=== PATIENT | male | born 1985 | race Caucasian/White ===

== ENCOUNTER 2024-07-21 17:05 | Emergency (ER) | payer BC, OTHER, SELFPAY ==
[2024-07-21 17:09] VITALS: BP 158/93; PULSE 93; TEMP 37; O2SAT 99; BMI 18.1
--- NOTE | 2024-07-21 18:06 | ED_ITS ---
HPI HPI - General Adult General Chief complaint: Abdominal Pain Stated complaint: ABDOMINAL PAIN Time Seen by Provider: 07/21/24 17:12 Source: patient Mode of arrival: walk-in Limitations: no limitations History of Present Illness HPI narrative: Patient states she has been experiencing abdominal pain since February of last year. Pain is mostly on the left side. It is worse after meals and he has frequent bowel movements usually shortly after he eats anything. He has had some weight loss. He does not report bloody stool or persistent vomiting. He underwent EGD and colonoscopy at [facility] a few months ago. I have reviewed those reports and no significant findings were reported. He was placed on Protonix and then switched to omeprazole. 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 Related Data Home Medications ?Medication ?Instructions ?Recorded ?Confirmed omeprazole 40 mg capsule,delayed 40 mg PO BID 07/21/24 07/21/24 release Previous Rx's ?Medication ?Instructions ?Recorded dicyclomine 20 mg tablet 20 mg PO TID PRN abdominal pain 07/21/24 #30 tabs Allergies Allergy/AdvReac Type Severity Reaction Status Date / Time No Known Drug Allergies Allergy Verified 07/21/24 17:14 Opioid HPI Opioid Management Most Recent Opioid Data: No Data to Display Review of Systems ROS Status of ROS 10 or more systems reviewed and unremark able except as noted in history and below PFSH PFSH Social History Little interest or pleasure in doing things: not at all Feeling down, depressed, or hopeless: not at all Exam Narrative Exam Narrative: Thin in appearance, afebrile and nondistressed. HEENT exam is normal to inspection. Neck is supple. Lung sounds are clear to auscultation bilaterally with good air entry. Heart has regular rate and rhythm. S1 and S2 normal abdomen soft with mild tenderness in the left flank but without guarding or peritoneal signs. Bowel sounds are slightly hyperactive and there is no organomegaly or distention. Lower extremities are warm and dry. Constitutional Vital Signs, click to edit/add: Last Vital Signs Temp 98.6 F 07/21/24 17:09 Pulse 93 H 07/21/24 17:09 Resp 18 07/21/24 17:09 BP 158/93 H 07/21/24 17:09 Pulse Ox 99 07/21/24 17:09 O2 Del Method Room Air 07/21/24 17:09 Course Vital Signs Vital signs: Vital Signs Temperature 98.6 F 07/21/24 17:09 Pulse Rate 93 H 07/21/24 17:09 Respiratory Rate 18 07/21/24 17:09 Blood Pressure 158/93 H 07/21/24 17:09 Pulse Oximetry 99 07/21/24 17:09 Oxygen Delivery Method Room Air 07/21/24 17:09 Temperature 98.6 F 07/21/24 17:09 Pulse Rate 93 H 07/21/24 17:09 Respiratory Rate 18 07/21/24 17:09 Blood Pressure 158/93 H 07/21/24 17:09 Pulse Oximetry 99 07/21/24 17:09 Oxygen Delivery Method Room Air 07/21/24 17:09 Medical Decision Making MDM Narrative Medical decision making narrative: Based on the patient's symptoms and after reviewing the report of his EGD and co lonoscopy I feel he does not have inflammatory bowel disease. My plan is to place him on Bentyl for suspected irritable bowel syndrome and have him follow- up with his rail express clerk in 2 days as scheduled. He may return anytime for worsening symptoms. Discharge Plan Discharge Chief Complaint: Abdominal Pain Clinical Impression: Abdominal pain Patient Disposition: Home, Self-Care Time of Disposition Decision: 18:10 Condition: Good Mode of Transportation: Private Vehicle Prescriptions / Home Meds: New dicyclomine 20 mg tablet 20 mg PO TID PRN (Reason: abdominal pain) Qty: 30 0RF No Action omeprazole 40 mg capsule,delayed release(DR/EC) 40 mg PO BID Print Language: Croatian Instructions: Irritable Bowel Syndrome (ED), Abdominal Pain (ED) Additional Instructions: Eat small frequent meals. Avoid dairy products. Follow-up with your rail express clerk in 2 days as scheduled. Return for worsening symptoms. Referrals: Jennifer Mar NP [Primary Care Provider] - 1 week
== END 2024-07-21 18:24 | disposition home or self-care (01) ==
PROVIDERS: Emergency Provider Emergency Medicine; PCP Nurse Practitioner Family
DX: R10.9 Unspecified abdominal pain (principal)
CPT/HCPCS: 99283

== ENCOUNTER 2024-10-22 11:32 | Emergency (ER) | payer BC, OTHER, SELFPAY ==
[2024-10-22 11:36] VITALS: BP 109/65; PULSE 83; TEMP 37; O2SAT 100; BMI 17.6
--- NOTE | 2024-10-22 11:51 | ED_ITS ---
HPI HPI - General Adult General Chief complaint: Weakness Stated complaint: WEAKNESS DEHYDRATION Time Seen by Provider: 10/22/24 11:39 Source: patient Mode of arrival: walk-in Limitations: no limitations History of Present Illness HPI narrative: 39-year-old male presents to the emergency department for a chief complaint of feeling weak and dizzy. He believes he is dehydrated. He states it is quite hot where he works. He states he usually does not drink enough water as well. No vomiting or nauseousness. No fever or diarrhea. Has been feeling this way for the last day or 2. Related Data Home Medications ?Medication ?Instructions ?Recorded ?Confirmed omeprazole 40 mg capsule,delayed 40 mg PO BID 07/21/24 10/22/24 release Allergies Allergy/AdvReac Type Severity Reaction Status Date / Time No Known Drug Allergies Allergy Verified 10/22/24 11:36 Review of Systems ROS Narrative A ten point review of systems is negative except as noted above. PFSH PFSH Social History Little interest or pleasure in doing things: not at all Feeling down, depressed, or hopeless: not at all Exam Narrative Exam Narrative: Nurses note and vital signs reviewed and patient is not hypoxic. General: The patient appears well and in no apparent distress. Patient is resting comfortably on cart. Skin: Warm, dry, no pallor noted. There is no rash noted. Head: Normocephalic, atraumatic Eye: Normal conjunctiva, no drainage Ears, Nose, Mouth, and Throat: oral mucosa is slightly dry. Nares patent. Cardiovascular: Regular Rate and Rhythm, not tachycardic Respiratory: Patient is in no distress, no accessory muscle use, lungs are clear to auscultation, no wheezing, rales or rhonchi Back: non-tender GI: Soft and nontender Musculoskeletal: The patient has no evidence of calf tenderness, no pitting edema, symmetrical pulses noted bilaterally Neurological: A&O, normal speech Psychiatric: Cooperative Constitutional Vital Signs, click to edit/add: Last Vital Signs Temp 98.6 F 10/22/24 11:36 Pulse 83 10/22/24 11:36 Resp 18 10/22/24 11:36 BP 109/65 10/22/24 11:36 Pulse Ox 100 10/22/24 11:36 O2 Del Method Room Air 10/22/24 11:36 Course Vital Signs Vital signs: Vital Signs Temperature 98.6 F 10/22/24 11:36 Pulse Rate 83 10/22/24 11:36 Respiratory Rate 18 10/22/24 11:36 Blood Pressure 109/65 10/22/24 11:36 Pulse Oximetry 100 10/22/24 11:36 Oxygen Delivery Method Room Air 10/22/24 11:36 Temperature 98.6 F 10/22/24 11:36 Pulse Rate 83 10/22/24 11:36 Respiratory Rate 18 10/22/24 11:36 Blood Pressure 109/65 10/22/24 11:36 Pulse Oximetry 100 10/22/24 11:36 Oxygen Delivery Method Room Air 10/22/24 11:36 Medical Decision Making MDM Narrative Medical decision making narrative: Blood work is essentially normal. He was given IV fluids and a work note and is able to be discharged home. He was able to rest and sleep here. Treatment diagnosis and follow-up were discussed with the patient. Differential Diagnosis Differential Diagnosis: Dehydration, acute kidney injury Lab Data Lab results reviewed: Yes I reviewed the patient's lab results Labs: Lab Results 10/22/24 Range/Units 11:40 WBC 9.6 (4.0-11.0) 10^3/uL RBC 4.73 (4.70-6.10) 10^6/uL Hgb 15.0 (14.0-18.0) g/dL Hct 42.5 (42.0-54.0) % MCV 89.9 (80.0-94.0) fL MCH 31.7 (25.9-34.0) pg MCHC 35.3 H (29.9-35.2) g/dL RDW 11.7 (11.0-15.0) % Plt Count 217 (150-450) 10^3/uL MPV 10.9 (9.5-13.5) fL Neut % (Auto) 78.3 H (43.0-75.0) % Lymph % (Auto) 14.0 L (20.5-60.0) % [place] % (Auto) 6.0 (1.7-12.0) % Eos % (Auto) 0.7 L (0.9-7.0) % Baso % (Auto) 0.7 (0.2-2.0) % Neut # (Auto) 7.5 H (1.4-6.5) 10^3/uL Lymph # (Auto) 1.3 (1.2-3.8) 10^3/uL [place] # (Auto) 0.6 (0.3-0.8) 10^3/uL Eos # (Auto) 0.1 (0.0-0.7) 10^3/uL Baso # (Auto) 0.1 (0.0-0.1) 10^3/uL Abs Immat Gran (auto) 0.03 (0.00-0.03) 10^3/uL Imm/Tot Granulo (auto) 0.3 (0.0-0.5) % Sodium 143 (136-145) mmol/L Potassium 3.9 (3.5-5.1) mmol/L Chloride 107 (98-107) mmol/L Carbon Dioxide 26.9 (21.0-32.0) mmol/L Anion Gap 13.0 BUN 15.0 (7.0-18.0) mg/dL Creatinine 0.72 (0.70-1.30) mg/dL Est GFR ( Amer) >60 (>=60 mL/min/1.73m^2) Est GFR (Non-Af Amer) >60 (>=60 mL/min/1.73m^2) BUN/Creatinine Ratio 20.8 Glucose 121 H (74-106) mg/dL Calcium 8.9 (8.5-10.1) mg/dL Discharge Plan Discharge Chief Complaint: Weakness Clinical Impression: Dehydration Patient Disposition: Home, Self-Care Time of Disposition Decision: 12:42 Condition: Good Mode of Transportation: Private Vehicle Prescriptions / Home Meds: No Action omeprazole 40 mg capsule,delayed release(DR/EC) 40 mg PO BID Print Language: Romanian Instructions: Dehydration (ED) Referrals: Physician,Non-Staff, MD [Primary Care Provider] - 1 week
[2024-10-22] MEDS: 0.9 % SODIUM CHLORIDE 1,000 ML 1000 ML IV (11:52)
[2024-10-22 11:59] LABS: Basophils Absolute Auto 0.1 10^3/uL (0.0-0.1); Basophils Percent Auto 0.7 % (0.2-2.0); Eosinophils Absolute Auto 0.1 10^3/uL (0.0-0.7); Eosinophils Percent Auto 0.7 % (0.9-7.0); Hematocrit 42.5 % (42.0-54.0); Immature Granulocytes Abs Auto 0.03 10^3/uL (0.00-0.03); Immature Granulocytes Pct Auto 0.3 % (0.0-0.5); Lymphocytes Absolute Auto 1.3 10^3/uL (1.2-3.8); Mean Corpuscular HGB Conc 35.3 g/dL (29.9-35.2); Mean Corpuscular Hemoglobin 31.7 pg (25.9-34.0); Mean Corpuscular Volume 89.9 fL (80.0-94.0); Mean Platelet Volume 10.9 fL (9.5-13.5); Monocytes Absolute Auto 0.6 10^3/uL (0.3-0.8); Neutrophils Absolute Auto 7.5 10^3/uL (1.4-6.5); Neutrophils Percent Auto 78.3 % (43.0-75.0); Platelet Count 217 10^3/uL (150-450); Red Blood Count 4.73 10^6/uL (4.70-6.10); Red Cell Distribution Width 11.7 % (11.0-15.0); White Blood Count 9.6 10^3/uL (4.0-11.0)
[2024-10-22 12:05] LABS: BUN Creatinine Ratio 20.8; Calcium 8.9 mg/dL (8.5-10.1); Carbon Dioxide 26.9 mmol/L (21.0-32.0); Chloride 107 mmol/L (98-107); Estimated GFR (African America >60 (>=60 mL/min/1.73m^2); Estimated GFR (Non-African Ame >60 (>=60 mL/min/1.73m^2); Glucose 121 mg/dL (74-106); Potassium 3.9 mmol/L (3.5-5.1); Sodium 143 mmol/L (136-145)
[2024-10-22 12:51] VITALS: BP 108/71; PULSE 71; O2SAT 98
== END 2024-10-22 12:53 | disposition home or self-care (01) ==
PROVIDERS: Emergency Provider Emergency Medicine
DX: E86.0 Dehydration (principal)
CPT/HCPCS: 36415; 80048; 85025; 96360; 99284